=== PATIENT | male | born 1990 | race African-American/Black ===

== ENCOUNTER 2016-11-03 05:00 | Inpatient (IN) | payer MEDICARE ==
--- NOTE | ~2016-11-03 | PN ---
Unit #: [id number] #: [id number] Patient: ZO ALVAREZ [id number] [facility] [address] [place] [address] [id number] I MR#: [id number] NAME: ZO ALVAREZ ROOM: [facility] Age: 26 Sex: M Admission Date: 11/03/2016 : 1990 Attending Physician: Colin Gandhi M.D. Admitting Physician: Colin Gandhi M.D. Primary Care Physician: Primary Care Physician Jessica BULL PROGRESS NOTES DATE 11/07/2016 DISCUSSION The patient is in the bathroom today and does not leave. Staff reports no management issues at this time. Depakote level is pending tomorrow. We continue to await word regarding any possible aid with disposition. Dictated by... Colin Gandhi M.D. CB/blanco TD: 11/07/2016 14:06 JOB #: [id number] [facility] PROGRESS NOTES Page 1 of 1 X Colin Gandhi MD PROGRESS NOTE
--- NOTE | ~2016-11-03 | PN ---
Unit #: [id number] #: [id number] Patient: ZO ALVAREZ [id number] [facility] [address] [place] [address] [id number] MR#: [id number] NAME: ZO ALVAREZ ROOM: [facility] Age: 26 Sex: M Admission Date: 11/03/2016 : 1990 Attending Physician: Colin Gandhi M.D. Admitting Physician: Colin Gandhi M.D. Primary Care Physician: Primary Care Physician Jessica BULL PROGRESS NOTES DATE 11/06/2016 DISCUSSION The patient is resting comfortably with staff and reports no management issues. We will plan to check a Depakote level on . Dictated by... Colin Gandhi M.D. CB/bzg TD: 11/06/2016 15:03 JOB #: [id number] [facility] PROGRESS NOTES Page 1 of 1 X Colin Gandhi MD X PROGRESS NOTE
--- NOTE | ~2016-11-03 | PN ---
Unit #: [id number] #: [id number] Patient: ZO ALVAREZ [id number] [facility] [address] [place] [address] [id number] I MR#: [id number] NAME: ZO ALVAREZ ROOM: P121 Age: 26 Sex: M Admission Date: 11/03/2016 : 1990 Attending Physician: Colin Gandhi M.D. Admitting Physician: Colin Gandhi M.D. Primary Care Physician: Primary Care Physician Jessica BULL PROGRESS NOTES DATE 11/17/2016 DISCUSSION The patient is in a bit brighter spirits today. He is requesting large portions and otherwise has been in no management issues. He has been more active within the therapeutic milieu, and we continue to await word regarding disposition. Dictated by... Colin Gandhi M.D. CB/blanco TD: 11/17/2016 12:57 JOB #: [id number] [facility] PROGRESS NOTES Page 1 of 1 X Colin Gandhi MD PROGRESS NOTE
--- NOTE | ~2016-11-03 | PN ---
Unit #: [id number] #: [id number] Patient: ZO ALVAREZ [id number] [facility] [address] [place] [address] [id number] MR#: [id number] NAME: ZO ALVAREZ ROOM: [facility]121 Age: 26 Sex: M Admission Date: 11/03/2016 : 1990 Attending Physician: Colin Gandhi M.D. Admitting Physician: Colin Gandhi M.D. Primary Care Physician: Primary Care Physician Jessica BULL PROGRESS NOTES DATE 11/05/2016 DISCUSSION The patient is attending groups and is generally pleasant and cooperative though he continues to appear somewhat labile with elevation of mood. He is following the medications well and reports that he is feeling better with initiation of Depakote. We continue current treatment for the patient's bipolar manic episode. Dictated by... Colin Gandhi M.D. CB/mark TD: 11/06/2016 02:35 JOB #: [id number] [facility] PROGRESS NOTES Page 1 of 1 X Colin Gandhi MD PROGRESS NOTE
--- NOTE | ~2016-11-03 | PN ---
Unit #: [id number] #: [id number] Patient: ZO ALVAREZ [id number] [facility] [address] [place] [address] [id number] I MR#: [id number] NAME: ZO ALVAREZ ROOM: [facility]1 Age: 26 Sex: M Admission Date: 11/03/2016 : 1990 Attending Physician: Colin Gandhi M.D. Admitting Physician: Colin Gandhi M.D. Primary Care Physician: Primary Care Physician Jessica BULL PROGRESS NOTES DATE 11/19/2016 DISCUSSION The patient is abed today resting comfortably. Staff reports no management issues. We continue to wait word regarding his ultimate disposition options. Dictated by... Colin Gandhi M.D. CB/mark TD: 11/19/2016 12:21 JOB #: [id number] [facility] PROGRESS NOTES Page 1 of 1 X Colin Gandhi MD X PROGRESS NOTE
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
--- NOTE | ~2016-11-03 | DS ---
Unit #: [id number] #: [id number] Patient: ZO ALVAREZ [id number] [facility] [address] [place] [address] [id number] I MR#: [id number] NAME: ZO ALVAREZ ROOM: [facility] Age: 26 Sex: M Admission Date: 11/03/2016 : 1990 Discharge Date: Attending Physician: Colin Gandhi M.D. Primary Care Physician: Primary Care Physician No DISCHARGE SUMMARY REASON FOR ADMISSION The patient is a 26-year-old male, admitted to the [address] [place] [address] unit in a state of dante. HOSPITAL COURSE The patient was admitted to the [address] [place] [address] unit and continued on previously prescribed Invega Sustenna which had been administered on 10/26/2016. The patient was begun on Depakote ER 1000 mg at bedtime and tolerated the medication well. He showed significant improvement with initiation of Depakote and was more active and participated within the therapeutic milieu. By 11/20/2016, arrangements have been made for the patient to go to residential facility in [facility][1] and discharge was ordered. FINAL DIAGNOSES Bipolar disorder, most recent episode manic. DISPOSITION ON DISCHARGE The patient is discharged on the following medications: Invega Sustenna 156 mg two to three days, next dose due 11/26/2016 for psychosis. Depakote ER 1000 mg at bedtime for mood stabilization. DISCHARGE INSTRUCTIONS No dietary or physical restrictions were placed upon the patient at the time of discharge. FOLLOWUP Followup will take place through the auspices of community mental health resources in [facility][1]. PROGNOSIS The patient's prognosis is considered fair. Dictated by... Colin Gandhi M.D. CB/marian TD: 11/20/2016 17:41 JOB #: [id number] Unit #: [id number] #: [id number] Patient: ZO ALVAREZ DISCHARGE SUMMARY Page 1 of 1 X Colin Gandhi MD X DISCHARGE SUMMARY
--- NOTE | ~2016-11-03 | PN ---
Unit #: [id number] #: [id number] Patient: ZO ALVAREZ [id number] [facility] [address] [place] [address] [id number] I MR#: [id number] NAME: ZO ALVAREZ ROOM: P121 Age: 26 Sex: M Admission Date: 11/03/2016 : 1990 Attending Physician: Colin Gandhi M.D. Admitting Physician: Colin Gandhi M.D. Primary Care Physician: Primary Care Physician Jessica BULL PROGRESS NOTES DATE 11/12/2016 DISCUSSION We continue to wait word regarding the patient's potential placement options. He remains abed much of the time but is generally has not really been much in the way of a management issue. He seems to be tolerating medications though. There does seem to a possibility of some over sedation. Dictated by... Colin Gandhi M.D. CB/mark TD: 11/12/2016 22:01 JOB #: [id number] [facility] PROGRESS NOTES Page 1 of 1 X Colin Gandhi MD PROGRESS NOTE
--- NOTE | ~2016-11-03 | PN ---
Unit #: [id number] #: [id number] Patient: ZO ALVAREZ [id number] [facility] [address] [place] [address] [id number] I MR#: [id number] NAME: ZO ALVAREZ ROOM: [facility] Age: 26 Sex: M Admission Date: 11/03/2016 : 1990 Attending Physician: Colin Gandhi M.D. Admitting Physician: Colin Gandhi M.D. Primary Care Physician: Primary Care Physician Jessica BULL PROGRESS NOTES DATE 11/13/2016 DISCUSSION The patient is more active within the therapeutic milieu and seems less groggy when seen today. His Depakote level done previously was a 74. We continue to await word regarding disposition as the patient has multiple questions for his social service assistant regarding this. Dictated by... Colin Gandhi M.D. GHADA/hunter TD: 11/13/2016 16:00 JOB #: [id number] [facility] PROGRESS NOTES Page 1 of 1 X Colin Gandhi MD PROGRESS NOTE
--- NOTE | ~2016-11-03 | PN ---
Unit #: [id number] #: [id number] Patient: ZO ALVAREZ [id number] [facility] [address] [place] [address] [id number] I MR#: [id number] NAME: ZO ALVAREZ ROOM: P121 Age: 26 Sex: M Admission Date: 11/03/2016 : 1990 Attending Physician: Colin Gandhi M.D. Admitting Physician: Colin Gandhi M.D. Primary Care Physician: Primary Care Physician Jessica BULL PROGRESS NOTES DATE 11/08/2016 DISCUSSION The patient is seclusive to room today but is otherwise pleasant, cooperative. He offers no new complaints. A Depakote level will be pending tomorrow. Dictated by... Colin Gandhi M.D. CB/hunter TD: 11/08/2016 15:02 JOB #: [id number] [facility] PROGRESS NOTES Page 1 of 1 X Colin Gandhi MD X PROGRESS NOTE
--- NOTE | ~2016-11-03 | PN ---
Unit #: [id number] #: [id number] Patient: ZO ALVAREZ [id number] [facility] [address] [place] [address] [id number] I MR#: [id number] NAME: ZO ALVAREZ ROOM: P121 Age: 26 Sex: M Admission Date: 11/03/2016 : 1990 Attending Physician: Colin Gandhi M.D. Admitting Physician: Colin Gandhi M.D. Primary Care Physician: Primary Care Physician Jessica BULL PROGRESS NOTES DATE 11/11/2016 DISCUSSION The patient is a bed with a blanket covering his head today. Staff reports no management issues but states that he has been somewhat seclusive to room. Dictated by... Colin Gandhi M.D. CB/mark TD: 11/12/2016 02:30 JOB #: [id number] [facility] PROGRESS NOTES Page 1 of 1 X Colin Gandhi MD X PROGRESS NOTE
--- NOTE | ~2016-11-03 | PN ---
Unit #: [id number] #: [id number] Patient: ZO ALVAERZ [id number] [facility] [address] [place] [address] [id number] I MR#: [id number] NAME: ZO ALVAREZ ROOM: [facility] Age: 26 Sex: M Admission Date: 11/03/2016 : 1990 Attending Physician: Colin Gandhi M.D. Admitting Physician: Colin Gandhi M.D. Primary Care Physician: Primary Care Physician Jessica BULL PROGRESS NOTES DATE 11/10/2016 DISCUSSION The patient is abed, resting comfortably today. Staff reports no management issues, but states that the patient's participation within the therapeutic milieu has been limited. Staff also reports that the patient's manic symptoms prevalent at discharge have improved considerably. Dictated by... Colin Gandhi M.D. CB/blanco TD: 11/10/2016 13:00 JOB #: [id number] [facility] PROGRESS NOTES Page 1 of 1 X Colin Gandhi MD X PROGRESS NOTE
--- NOTE | ~2016-11-03 | PN ---
Unit #: [id number] #: [id number] Patient: ZO ALVAREZ [id number] [facility] [address] [place] [address] [id number] MR#: [id number] NAME: ZO ALVAREZ ROOM: [facility]1 Age: 26 Sex: M Admission Date: 11/03/2016 : 1990 Attending Physician: Colin Gandhi M.D. Admitting Physician: Colin Gandhi M.D. Primary Care Physician: Primary Care Physician Jessica BLUL PROGRESS NOTES DATE 11/17/2016 DISCUSSION The patient has been having some difficulty sleeping and we will add Trazodone 50 mg at h.s. Otherwise, his behavior has been appropriate and we continue to await word regarding disposition. He is compliant with prescribed medications and is tolerating them well. Dictated by... Colin Gandhi M.D. CB/mark TD: 11/19/2016 03:20 JOB #: [id number] [facility] PROGRESS NOTES Page 1 of 1 X Colin Gandhi MD PROGRESS NOTE
--- NOTE | ~2016-11-03 | PN ---
Unit #: [id number] #: [id number] Patient: ZO ALVAREZ [id number] [facility] [address] [place] [address] [id number] I MR#: [id number] NAME: ZO ALVAREZ ROOM: [facility] Age: 26 Sex: M Admission Date: 11/03/2016 : 1990 Attending Physician: Colin Gandhi M.D. Admitting Physician: Colin Gandhi M.D. Primary Care Physician: Primary Care Physician Jessica BULL PROGRESS NOTES DATE 11/14/2016 DISCUSSION The patient offers no new complaints today. He is abed resting comfortably. We continue to await word regarding his possible acceptance at a facility in [facility]. Dictated by... Colin Gandhi M.D. CB/bzg TD: 11/14/2016 14:22 JOB #: [id number] [facility] PROGRESS NOTES Page 1 of 1 X Colin Gandhi MD X PROGRESS NOTE
[2016-11-04 13:05] LABS: BASOPHIL% 0.4 % (0-2.5); DIFF IND NO; EOSINOPHIL# 0.1 X10e3 (0-0.7); EOSINOPHIL% 2.3 % (0.0-7.0); HEMATOCRIT 46.6 % (38.0-50.0); HEMOGLOBIN 15.1 gm/dL (13.0-16.0); LYMPHOCYTE# 1.9 X10e3 (1.0-3.5); LYMPHOCYTE% 49.8 % (17.0-45.0); MEAN CELL VOLUME 87.9 FL (83-96); MEAN CORPUSCULAR HEMOGLOBIN 28.4 PG (28-34); MEAN CORPUSCULAR HGB CONC 32.3 g/dL (30-36); MEAN PLATELET VOLUME 8.3 FL (6.5-11.5); MONOCYTE# 0.3 X10e3 (0-1.0); MONOCYTE% 8.2 % (3.0-12.0); NEUTROPHIL# 1.5 X10e3 (1.5-7.1); NEUTROPHIL% 39.3 % (40-75); PLATELET COUNT 230 X10e3 (140-420); RED CELL DISTRIBUTION WIDTH 12.8 % (11.0-15.5); WHITE BLOOD COUNT 3.9 X10e3 (4.0-10.5)
[2016-11-04 13:24] LABS: ALBUMIN SERUM 4.7 g/dL (3.5-5.0); BILIRUBIN,TOTAL 0.6 mg/dL (0.2-2.0); BUN/CREATININE RATIO 17.77; CALCIUM SERUM 10.3 mg/dL (8.4-10.2); CREATININE SERUM 0.9 mg/dL (0.6-1.4); GLOM FILT RATE Estimated 136.1 mL/min (>60); POTASSIUM 4.7 mmol/L (3.5-5.1); PROTEIN TOTAL SERUM 7.8 g/dL (6.0-8.3)
[2016-11-04 13:31] LABS: THYROID STIMULATING HORMONE 0.59 uIU/ml (0.34-5.60)
[2016-11-04 13:38] LABS: FREE THYROXIN (T4) 0.91 ng/dL (0.58-1.64)
[2016-11-07 12:53] LABS: URINE APPEARANCE CLEAR; URINE BILIRUBIN NEG (NEG); URINE BLOOD NEG (NEG); URINE COLOR YELLOW; URINE GLUCOSE NEG (NEG); URINE KETONE TRACE (NEG); URINE LEUKOCYTE ESTERASE NEG (NEG); URINE NITRATE NEG (NEG); URINE PROTEIN TRACE (NEG); URINE SPECIFIC GRAVITY 1.022 (1.003-1.035)
[2016-11-07 13:45] LABS: AMPHETAMINE NEG (NEG); BARBITURATES NEG (NEG); BENZODIAZEPINES NEG (NEG); COCAINE NEG (NEG); MARIJUANA NEG (NEG); OPIATES NEG (NEG); TRICYCLIC ANTIDEPRESSANTS NEG (NEG); U METHADONE NEG (NEG)
== END 2016-11-21 09:55 | disposition other institution (70) | DRG 885 ==
LOC: P1S 10:18
PROVIDERS: Specialist
DX: F31.9 Bipolar disorder, unspecified (principal); Z59.0 Homelessness
CPT/HCPCS: 80053; 80164; 80307; 81003; 82140; 84439; 84443; 85025; 87806